=== PATIENT | female | born 1990 | race Caucasian/White ===

== ENCOUNTER 2016-11-05 21:22 | Emergency (ER) | payer OTHER ==
[~2016-11-05] VITALS: Ht 157.5 cm; Wt 78.9 kg
[2016-11-05 21:22] VITALS: BP_SYST 123
[2016-11-05] MEDS ORDERED: KETOROLAC TROMETHAMINE 60 MG/2 ML VIAL IM ONE (21:45)
[2016-11-05 22:00] LABS: BASOPHILS # (AUTO) 0.1 K/uL (0.0-0.2); BASOPHILS % (AUTO) 0.9 % (0.0-2.0); EOSINOPHILS # (AUTO) 0.1 K/uL (0.0-0.4); EOSINOPHILS % (AUTO) 1.1 % (0.0-4.0); HEMATOCRIT 34.6 % (36-48); HEMOGLOBIN 11.5 g/dL (12.0-16.0); LYMPHOCYTES # (AUTO) 2.1 K/uL (1.0-5.5); LYMPHOCYTES % (AUTO) 27.9 % (20.5-51.5); MEAN CORPUSCULAR HEMOGLOBIN 29 pg (27-31); MEAN CORPUSCULAR HGB CONC 33 % (32-36); MEAN CORPUSCULAR VOLUME 86 fL (79.0-98.0); MONOCYTES # (AUTO) 0.7 K/uL (0.0-1.0); MONOCYTES % (AUTO) 8.9 % (1.7-9.3); NEUTROPHILS # (AUTO) 4.5 K/uL (1.8-7.7); NEUTROPHILS % (AUTO) 61.2 % (40.0-70.0); PLATELET COUNT (AUTO) 226 K/uL (130-430); RED BLOOD CELL COUNT(AUTO) 4.01 MIL/uL (4.2-6.2); RED CELL DISTRIBUTION WIDTH 14.7 % (9.0-15.0); WHITE BLOOD COUNT (AUTO) 7.5 K/uL (4.8-10.8)
[2016-11-05 22:05] LABS: CALCIUM 8.4 mg/dL (8.4-11.0); CREATININE 0.96 mg/dL (0.55-1.30); POTASSIUM 3.6 mmol/L (3.5-5.1)
[2016-11-05 22:06] LABS: PROTHROMBIN TIME 10.5 SECS (9.5-12.5)
[2016-11-05 22:10] LABS: ALBUMIN 3.2 g/dL (3.4-4.8); TOTAL BILIRUBIN 0.3 mg/dL (0.0-1.0); TOTAL PROTEIN, SERUM 6.6 g/dL (6.4-8.3)
[2016-11-05] MEDS ORDERED: MORPHINE 2 MG/ML INJ. SYRINGE IVP ONE (22:15)
[2016-11-05] MEDS ORDERED: MORPHINE 2 MG/ML INJ. SYRINGE IM ONE (22:30)
[2016-11-05 22:59] VITALS: BP_SYST 120
== END 2016-11-05 22:59 | disposition home or self-care (01) ==
LOC: SED 21:22
DX: R07.89 Other chest pain (principal); R03.0 Elevated blood-pressure reading, without diagnosis of hypertension
CPT/HCPCS: 36415; 71010; 80053; 85025; 85610; 85730; 93005; 96372; 99285; J1885; J2270

== ENCOUNTER 2017-06-04 22:39 | Emergency (ER) | payer BC, OTHER ==
[~2017-06-04] VITALS: Ht 160 cm; Wt 87.1 kg
[2017-06-04 22:40] VITALS: BP_SYST 120
[2017-06-05] MEDS ORDERED: SUMAtriptan SUCCINATE 6 MG/0.5 ML VIAL SUBCUT ONE (02:15)
[2017-06-05] MEDS ORDERED: MORPHINE 4 MG/ML INJ. SYRINGE IM ONE (03:15)
[2017-06-05] MEDS ORDERED: MORPHINE SULFATE 10 MG/ML VIAL ONE (03:16)
[2017-06-05 03:40] VITALS: BP_SYST 110
== END 2017-06-05 03:40 | disposition home or self-care (01) ==
LOC: SED 22:39
DX: G43.909 Migraine, unspecified, not intractable, without status migrainosus (principal)
CPT/HCPCS: 96372; 99284; J2270; J3030; J7030

== ENCOUNTER 2020-10-12 00:32 | Emergency (ER) | payer BC, OTHER ==
[~2020-10-12] VITALS: Ht 160 cm; Wt 92.1 kg
[2020-10-12 00:32] VITALS: BP_SYST 149
--- NOTE | 2020-10-12 00:32 | NUR ---
Patient to ER bed 01 to gown for evaluation. Side rails up. Report given to BRITTANY VELEZ
--- NOTE | 2020-10-12 00:42 | NUR ---
PATIENT BROUGHT IN AMBULATORY FROM HOME AOX4 COMPLAINING OF LEFT LOWER ABDOMINAL PAIN X 2 DAYS. PATIENT REPORTS SHE HAS CONSTIPATION BUT HAS HISTORY OF IBS. PAIN 6/. NO OTHER COMPLAINTS/INJURIES PER PATIENT OR NOTED.
--- NOTE | 2020-10-12 01:42 | NUR ---
ER at bedside examining patient.
[2020-10-12 01:44] LABS: BILIRUBIN,URINE NEGATIVE (NEGATIVE); BLOOD, URINE NEGATIVE (NEGATIVE); CLARITY/URINE CLEAR (CLEAR); COLOR,URINE YELLOW (YELLOW); GLUCOSE,URINE NEGATIVE (NEGATIVE); KETONES,URINE NEGATIVE (NEGATIVE); LEUKOCYTE ESTERASE ,URINE TRACE (NEGATIVE); NITRITE, URINE NEGATIVE (NEGATIVE); PROTEIN URINE NEGATIVE (NEGATIVE); UROBILINOGEN,URINE 0.2 (0.2-1.0)
[2020-10-12] MEDS ORDERED: KETOROLAC TROMETHAMINE 60 MG/2 ML VIAL IM ONE (01:45)
--- NOTE | 2020-10-12 01:49 | NUR ---
patient moved to bed 7
[2020-10-12 01:50] LABS: BASOPHILS # (AUTO) 0.1 K/uL (0.0-0.2); BASOPHILS % (AUTO) 1.3 % (0.0-2.0); EOSINOPHILS % (AUTO) 0.5 % (0.0-4.0); HEMATOCRIT 37.2 % (36-48); HEMOGLOBIN 12.4 g/dL (12.0-16.0); LYMPHOCYTES # (AUTO) 2.6 K/uL (1.0-5.5); LYMPHOCYTES % (AUTO) 29.7 % (20.5-51.5); MEAN CORPUSCULAR HEMOGLOBIN 30 pg (27-31); MEAN CORPUSCULAR HGB CONC 33 % (32-36); MEAN CORPUSCULAR VOLUME 90 fL (79.0-98.0); MONOCYTES # (AUTO) 0.6 K/uL (0.0-1.0); MONOCYTES % (AUTO) 7.4 % (1.7-9.3); NEUTROPHILS # (AUTO) 5.3 K/uL (1.8-7.7); NEUTROPHILS % (AUTO) 61.1 % (40.0-70.0); PLATELET COUNT (AUTO) 232 K/uL (130-430); RED BLOOD CELL COUNT(AUTO) 4.12 MIL/uL (4.2-6.2); RED CELL DISTRIBUTION WIDTH 12.5 % (9.0-15.0); WHITE BLOOD COUNT (AUTO) 8.6 K/uL (4.8-10.8)
[2020-10-12 01:57] LABS: CALCIUM 8.6 mg/dL (8.4-11.0); CREATININE 1.17 mg/dL (0.55-1.30); POTASSIUM 3.4 mmol/L (3.5-5.1)
[2020-10-12 01:57] LABS: BACTERIA,URINE FEW /HPF (None Seen); RBC,URINE 0-3 /HPF (0-3); WBC,URINE 0-3 /HPF (0-3)
--- NOTE | 2020-10-12 02:01 | NUR ---
Pelvic exam performed by Dr. Beck with myself at bedside for entire examination. Patient tolerated procedure well. Patient assisted to position of comfort after examination.
[2020-10-12 02:08] LABS: ALBUMIN 3.1 g/dL (3.4-4.8); TOTAL BILIRUBIN 0.5 mg/dL (0.0-1.0)
--- NOTE | 2020-10-12 02:18 | NUR ---
Patient came back from CT scan.
[2020-10-12 03:47] VITALS: BP_SYST 149
--- NOTE | 2020-10-12 03:47 | NUR ---
Patient given written and verbal discharge instructions and verbalizes understanding. ER MD discussed with patient the results and treatment provided. Patient in stable condition. ID arm band removed. NO Rx given. Patient educated on pain management and to follow up with PMD. Pain Scale 3/10. Opportunity for questions provided and answered.
== END 2020-10-12 03:47 | disposition home or self-care (01) ==
LOC: SED 00:32
DX: K63.89 Other specified diseases of intestine (principal)
CPT/HCPCS: 36415; 74176; 76376; 80053; 81000; 81025; 83690; 85025; 99284; J1885